=== PATIENT | female | born 1970 | race Two or more races ===

== ENCOUNTER 2017-07-30 12:41 | Emergency (ER) | payer BC ==
[~2017-07-30] VITALS: Ht 157.5 cm; Wt 81.6 kg
[2017-07-30] MEDS ORDERED: NKM (12:52)
[2017-07-30] MEDS ORDERED: Acetaminophen 500mg (ES) tab ORAL ONE (13:30)
--- NOTE | 2017-07-30 13:34 | Emergency Room Report ---
History of Present Illness General Chief Complaint: Sore Throat Source: Patient Present Illness HPI 46 yo female patient presents to ER complaining of sore throat x2 weeks. Patient was sent by Dr. Mendez office for increased difficulty swallowing foods to get neck imaging. Reports able to swallow liquids. Reports initially seen for symptoms 2 weeks ago and treated with abx; completed full course of abx. Reports symptoms worsened. Take Advil for pain, no medication today. Bee fever, chest pain, SOB. Denies voice changes. Denies hx of trauma. Allergies: Coded Allergies: No Known Allergies (Unverified , 07/30/17) Patient History Past Medical History: see triage record Last Menstrual Period: 3 MONTHS AGO Reviewed Nursing Documentation: PMH: Agreed, PSxH: Agreed Nursing Documentation-PMH Past Medical History: No Stated History Review of Systems All Other Systems: negative except mentioned in HPI Physical Exam Vital Signs Date Time Temp Pulse Resp B/P (MAP) Pulse Ox O2 Delivery O2 Flow Rate FiO2 07/30/17 12:46 98.3 63 16 134/88 96 Room Air 98.2 Sp02 EP Interpretation: reviewed, normal General Appearance: well appearing, no apparent distress, alert, GCS 15 Head: normocephalic, atraumatic, other - no TTP of frontal and maxillary sinuses Eyes: bilateral eye normal inspection, bilateral eye PERRL ENT: hearing grossly normal, normal pharynx, no angioedema, normal voice, TMs + canals normal, uvula midline, moist mucus membranes Neck: full range of motion, no bony tend, tender lateral - left anterior, no erythema, no edema, no ecchymosis, thyromegaly - left side Respiratory: lungs clear, normal breath sounds, no rhonchi, no respiratory distress, no accessory muscle use, no wheezing, speaking full sentences, other - no stridor Cardiovascular #1: regular rate, rhythm Musculoskeletal: back normal, digits/nails normal, gait/station normal, normal range of motion, non-tender Neurologic: alert, oriented x3, responsive, motor strength/tone normal, sensory intact, normal gait Psychiatric: mood/affect normal Skin: no rash Lymphatic: no adenopathy Medical Decision Making PA Attestation Dr. Henderson is my supervising Physician whom patient management has been discussed with. Diagnostic Impression: Primary Impression: Thyroid mass ER Course Pt presents to ED c/o sore throat and swelling, difficulty swallowing. DDX considered but are not limited to influenza, viral URI, strep throat, pharyngitis, tonsillitis, peritonsillar abscess, retropharyngeal abscess, goiter. Low suspicion for Peritonsillar abscess, no hot potato voice, no difficulty breathing, uvula midline. VITAL SIGNS are WNL, patient is afebrile Consult with Dr. Henderson regarding treatment of patient. Will order CT. Ordered labs, CT neck and medication. ER COURSE: Labs unremarkable, no elevation in WBC or liver enzymes, GFR and creatinine WNL. 0200 PM Patient requesting food. Patient asking to leave and come back so she can get food. Informed patient she must stay. Patient reports understanding and agreement. 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 Patient reports feeling better following administration of medication. CT neck performed with contrast. 15 x 11 x 12 mm mass in the left side of the thyroid isthmus, equivocally but not definitely cystic. Recommended thyroid US. No other acute or significant abnormality demonstrated Discuss results of CT with patient. Contacted Dr. Mendez office, informed of results, recommendation of thyroid US. Dr. Mendez office reports they will refer patient to ENT and endocrinology as needed and followup with patient. Informed patient to call Dr. Mendez office for referral appointments that will be scheduled by them. Patient reports she is ready to be discharged at this time. Patient stable for discharge home. Dr. Henderson agrees to above treatment plan. DISCHARGE: No Rx required at this time. Take Tylenol at home for pain symptoms. Copy of CT report provided to patient. At this time pt is stable for d/c to home. Patient resting comfortably, in no acute distress, nontoxic appearing, talking without difficulty. Patient states she has eaten since arrival to ER. Salt water gargles for sore throat. Patient to take medications as instructed. Will provide with patient care instructions and any necessary prescriptions. Care plan and follow-up instructions provided. Patient instructed to follow-up with primary care provider who will refer patient for further treatment. Patient questions asked and answered. ER precautions given. Patient instructed to return to ER immediately for any new or worsening of symptoms including but not limited to fever, SOB, difficulty swallowing. Labs Test 07/30/17 15:00 White Blood Count 5.3 K/UL (4.8-10.8) Red Blood Count 4.58 M/UL (4.20-5.40) Hemoglobin 13.8 G/DL (12.0-16.0) Hematocrit 39.9 % (37.0-47.0) Mean Corpuscular Volume 87 FL (80-99) Mean Corpuscular Hemoglobin 30.1 PG (27.0-31.0) Mean Corpuscular Hemoglobin Concent 34.6 G/DL (32.0-36.0) Red Cell Distribution Width 15.2 % (11.6-14.8) Platelet Count 311 K/UL (150-450) Mean Platelet Volume 6.9 FL (6.5-10.1) Neutrophils (%) (Auto) 52.2 % (45.0-75.0) Lymphocytes (%) (Auto) 31.2 % (20.0-45.0) Monocytes (%) (Auto) 4.7 % (1.0-10.0) Eosinophils (%) (Auto) 11.2 % (0.0-3.0) Basophils (%) (Auto) 0.6 % (0.0-2.0) Urine Color Pale yellow Urine Appearance Clear Urine pH 6 (4.5-8.0) Urine Specific [place] 1.015 (1.005-1.035) Urine Protein Negative (NEGATIVE) Urine Glucose (UA) Negative (NEGATIVE) Urine Ketones Negative (NEGATIVE) Urine Occult Blood Negative (NEGATIVE) Urine Nitrite Negative (NEGATIVE) Urine Bilirubin Negative (NEGATIVE) Urine Urobilinogen Normal MG/DL (0.0-1.0) Urine Leukocyte Esterase Negative (NEGATIVE) Sodium Level 139 MMOL/L (136-145) Potassium Level 3.6 MMOL/L (3.5-5.1) Chloride Level 102 MMOL/L (98-107) Carbon Dioxide Level 30 MMOL/L (21-32) Anion Gap 7 mmol/L (5-15) Blood Urea Nitrogen 9 mg/dL (7-18) Creatinine 0.7 MG/DL (0.55-1.30) Estimat Glomerular Filtration Rate > 60 mL/min (>60) Glucose Level 116 MG/DL (74-106) Calcium Level 9.5 MG/DL (8.5-10.1) Total Bilirubin 0.7 MG/DL (0.2-1.0) Aspartate Amino Transf (AST/SGOT) 20 U/L (15-37) Alanine Aminotransferase (ALT/SGPT) 33 U/L (12-78) Alkaline Phosphatase 114 U/L (46-116) Total Protein 7.8 G/DL (6.4-8.2) Albumin 3.9 G/DL (3.4-5.0) Globulin 3.9 g/dL Albumin/Globulin Ratio 1.0 (1.0-2.7) CT/MRI/US Diagnostic Results CT/MRI/US Diagnostic Results : Imaging Test Ordered: CT neck Impression 15 x 11 x 12 mm mass in the left side of the thyroid isthmus, equivocally but not definitely cystic. Possibly palpable. Correlate clinical findings, consider thyroid sonography for better characterization No other acute or significant abnormality demonstrated Bilateral maxillary sinus disease Evidence of prior maxillary dental extractions Mildly prominent but not frankly enlarged bilateral jugulodigastric nodes. Last Vital Signs Date Time Temp Pulse Resp B/P (MAP) Pulse Ox O2 Delivery O2 Flow Rate FiO2 07/30/17 12:46 98.3 63 16 134/88 96 Room Air 98.2 Disposition: HOME, SELF-CARE Condition: Stable Patient Instructions: Goiter Additional Instructions: Followup with primary care provider, will refer you to ENT and endocrinology as needed for further treatment. Take medications as directed. Patient questions asked and answered. ER precautions given, patient instructed to return to ER immediately for any new or worsening of symptoms. Andrews Cotter Jul 30, 2017 13:34
[2017-07-30] MEDS ORDERED: Dexamethasone 4mg/ml vial IVP ONE (13:45)
[2017-07-30 14:56] VITALS: BP 130/80
[2017-07-30 15:29] LABS: APPEARANCE,URINE CLEAR; BILIRUBIN, URINE NEGATIVE (NEGATIVE); COLOR,URINE PALE YELLOW; GLUCOSE, URINE (UA) NEGATIVE (NEGATIVE); KETONES,URINE NEGATIVE (NEGATIVE); LEUKOCYTE ESTERASE ,URINE NEGATIVE (NEGATIVE); NITRITE,URINE NEGATIVE (NEGATIVE); PH,URINE 6 (4.5-8.0); PROTEIN,URINE NEGATIVE (NEGATIVE); UROBILINOGEN,URINE NORMAL MG/DL (0.0-1.0)
[2017-07-30 15:34] LABS: BASOPHILS % (AUTO) 0.6 % (0.0-2.0); EOSINOPHILS % (AUTO) 11.2 % (0.0-3.0); HEMATOCRIT 39.9 % (37.0-47.0); HEMOGLOBIN 13.8 G/DL (12.0-16.0); LYMPHOCYTES % (AUTO) 31.2 % (20.0-45.0); MEAN CORPUSCULAR VOLUME 87 FL (80-99); MONOCYTES % (AUTO) 4.7 % (1.0-10.0); NEUTROPHILS % (AUTO) 52.2 % (45.0-75.0); PLATELET COUNT 311 K/UL (150-450); RED BLOOD COUNT 4.58 M/UL (4.20-5.40); RED CELL DISTRIBUTION WIDTH 15.2 % (11.6-14.8); WHITE BLOOD COUNT 5.3 K/UL (4.8-10.8)
[2017-07-30 15:36] LABS: ANION GAP 7 mmol/L (5-15); BLOOD UREA NITROGEN 9 mg/dL (7-18); CALCIUM 9.5 MG/DL (8.5-10.1); CARBON DIOXIDE 30 MMOL/L (21-32); CHLORIDE 102 MMOL/L (98-107); CREATININE 0.7 MG/DL (0.55-1.30); POTASSIUM 3.6 MMOL/L (3.5-5.1); SODIUM 139 MMOL/L (136-145)
[2017-07-30 15:41] LABS: ALANINE AMINOTRANSFERASE 33 U/L (12-78); ALBUMIN 3.9 G/DL (3.4-5.0); ALKALINE PHOSPHATASE 114 U/L (46-116); ASPARTATE AMINO TRANSFERASE 20 U/L (15-37); BILIRUBIN,TOTAL 0.7 MG/DL (0.2-1.0)
--- NOTE | 2017-07-30 16:50 | Diagnostic Imaging Report ---
Indication: Anterior neck swelling, dysphagia x2 weeks Technique: IV administration nonionic contrast. Spiral acquisitions obtained through the neck. Multiplanar reconstructions were generated. Total dose length product 681.89 mGycm. CTDIvol(s) 19.81 mGy. Dose reduction achieved using automated exposure control Comparison: none Findings: In the left side of the thyroid isthmus, there is a hypoattenuating mass which measures 15 x 11 x 12 mm, bulges the anterior thyroid contour. The remainder of the thyroid is unremarkable. The nasopharynx, oropharynx, hypopharynx, larynx are unremarkable. There is minimal asymmetric prominence to the left tonsillar pillar and a calcification within the left tonsil, but this probably physiologic. No prevertebral soft tissue swelling. No circumscribed areas of low attenuation to suggest abscess. The salivary glands appear unremarkable. Prominent but not frankly enlarged jugulodigastric nodes are seen bilaterally, measuring 2.4 cm long axis dimension on the left and 2.5 cm long axis dimension on the right. The bilateral parapharyngeal spaces are clear. The bones are unremarkable. There are a few missing maxillary teeth on the left. The trachea and proximal bronchi are unremarkable. The visualized portions of the upper lungs are unremarkable except for normal variant anatomy of an azygos lobe and fissure. There is minimal mucosal thickening in the dependent portions of the maxillary sinuses bilaterally. The vascular structures are patent. No supraclavicular mass or adenopathy demonstrated. Impression: 15 x 11 x 12 mm mass in the left side of the thyroid isthmus, equivocally but not definitely cystic. Possibly palpable. Correlate clinical findings, consider thyroid sonography for better characterization No other acute or significant abnormality demonstrated Bilateral maxillary sinus disease Evidence of prior maxillary dental extractions Mildly prominent but not frankly enlarged bilateral jugulodigastric nodes. The CT scanner at [facility] is accredited by the [employer] and the scans are performed using protocols designed to limit radiation exposure to as low as reasonably achievable to attain images of sufficient resolution adequate for diagnostic evaluation.
[2017-07-30 17:55] VITALS: BP 120/85
== END 2017-07-30 17:55 | disposition home or self-care (01) ==
LOC: EMR 13:35
DX: E07.9 Disorder of thyroid, unspecified (principal)
CPT/HCPCS: 36415; 70491; 80053; 81003; 85025; 96374; 99284; J1100; Q9967